=== PATIENT | female | born 1985 ===

== ENCOUNTER 2021-01-25 22:34 | Emergency (ER) | payer SELFPAY ==
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
--- NOTE | 2021-01-26 00:50 | CR ---
INDICATION: Injury TECHNIQUE: Two view chest. FINDINGS: The lungs are clear. The heart, mediastinum and pulmonary vessels are of normal size. There is no evidence of pleural disease. IMPRESSION: Negative chest. Dictated by Bisi Welch MD @ 01/26/2021 12:48:35 AM (Electronically Signed)
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
== END 2021-01-26 00:04 | disposition home or self-care (01) ==
LOC: MW.ED 22:34
DX: S90.01XA Contusion of right ankle, initial encounter (principal); S20.211A Contusion of right front wall of thorax, initial encounter; Z88.1 Allergy status to other antibiotic agents; Y04.0XXA Assault by unarmed brawl or fight, initial encounter
CPT/HCPCS: 71046; 71046-26; 73610-26-RT; 73610-RT; 81003; 81025; 99284-25